=== PATIENT | female | born 1985 | race Caucasian/White ===

== ENCOUNTER 2016-12-29 06:56 | Emergency (ER) | payer OTHER ==
[~2016-12-29] VITALS: Ht 160 cm; Wt 56.7 kg
--- NOTE | 2016-12-29 08:03 | PHYS DOC ---
Past Medical History Past Medical History: No Pertinent History Adult General Chief Complaint Chief Complaint: SORE THROAT HPI HPI Patient is a 31 year old female presents to the emergency department with a history of cough, fever and sore throat for the last 4 days. 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 Patient states she has had a low grade fever. She has been using over counter medication with minimal relief. Review of Systems Review of Systems Constitutional: low grade fever Eyes: Denies change in visual acuity, redness, or eye pain [] HENT: nasal congestion and sore throat [] Respiratory: cough denies shortness of breath [] Cardiovascular: No additional information not addressed in HPI [] GI: Denies abdominal pain, nausea, vomiting, bloody stools or diarrhea [] : Denies dysuria or hematuria [] Musculoskeletal: Denies back pain or joint pain [] Integument: Denies rash or skin lesions [] Neurologic: Denies headache, focal weakness or sensory changes [] Allergies Allergies Allergies Coded Allergies Type Severity Reaction Last Updated Verified No Known Drug Allergies 12/29/16 No Physical Exam Physical Exam Constitutional: Well developed, well nourished, no acute distress, non-toxic appearance. [] HENT: Normocephalic, atraumatic, bilateral external ears normal, oropharynx moist, no oral exudates, nose normal. Bilateral TM normal, throat with slight erythema no exudate noted. Patient with left anterior cervical adenopathy Eyes: PERRLA, EOMI, conjunctiva normal, no discharge. [] Neck: Normal range of motion, no tenderness, supple, no stridor. [] Cardiovascular:Heart rate regular rhythm, no murmur [] Lungs & Thorax: Bilateral breath sounds clear to auscultation [] Back: No tenderness Extremities: No tenderness, no cyanosis, no clubbing, ROM intact, no edema. [] Neurologic: Alert and oriented X 3, normal motor function, normal sensory function, no focal deficits noted. [] Psychologic: Affect normal, judgement normal, mood normal. [] Current Patient Data Vital Signs Vital Signs Date Time Temp Pulse Resp B/P Pulse Ox O2 Delivery O2 Flow Rate FiO2 12/29/16 07:45 99.3 84 16 105/69 97 Room Air 99.3 Lab Values Laboratory Tests Test 12/29/16 08:06 Influenza Type A Antigen Positive (NEGATIVE) Influenza Type B Antigen Negative (NEGATIVE) EKG EKG [] Radiology/Procedures Radiology/Procedures [] Course & Med Decision Making Course & Med Decision Making Pertinent Labs and Imaging studies reviewed. (See chart for details) Rapid strep negative. Influenza A positive Recommended plenty of fluids, rest. Tylenol or Ibuprofen for fever, chills or generalized body aches and discomfort. Over the counter medication for cough and congestion such as Mucinex DM. Followup with primary care provider in 5-7 days if not feeling better. Signs and symptoms to return to the emergency department has been provided. [] Dragon Disclaimer Dragon Disclaimer This electronic medical record was generated, in whole or in part, using a voice recognition dictation system. Departure Departure Impression: Primary Impression: Influenza A Disposition: 01 HOME, SELF-CARE Condition: STABLE Referrals: NO PCP (PCP) Patient Instructions: Influenza, Adult, [id number] Additional Instructions: Influenza A positive. You are out of the time frame for Tamiflu. Treat your symptoms with over the counter medications Activity as tolerated Tylenol or Ibuprofen for fever, chills, or generalized body aches Mucinex DM as directed by manufacture Drink plenty of fluids such as water, gatorade, or propel Followup with your primary care provider in 5-7 days Return to emergency department as needed for signs and symptoms that become worse. FRANCA HORNE NP Dec 29, 2016 08:03
[2016-12-29] MEDS ORDERED: SERT25TA PO (08:04)
[2016-12-29 08:46] LABS: OBC FLU VALID
[2016-12-29 09:11] VITALS: BP 104/64
[2016-12-29 12:49] LABS: NEGATIVE OBC STREP NEG; POSITIVE OBC STREP POS
== END 2016-12-29 09:11 | disposition home or self-care (01) ==
LOC: ER 06:56
DX: J09.X2 Influenza due to identified novel influenza A virus with other respiratory manifestations (principal); R59.0 Localized enlarged lymph nodes
CPT/HCPCS: 87070; 87804; 87880; 99284